=== PATIENT | female | born 2000 | race Caucasian/White ===

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

== ENCOUNTER → 2024-04-14 | Outpatient (CLI) | payer OTHER ==
[~2024-04-14] MED LIST changes: +CIPR250T3 PO; +LEXA1TAB PO; -PROPOFOL 200 MG/20 ML VIAL As Ordered; +SETL1TAB PO
[2024-04-14 17:03] LABS: HEMATOCRIT 37.5 % (36.0-47.0); HEMOGLOBIN 12.2 g/dl (12.0-15.5); MEAN CORPUSCULAR HGB CONC 32.5 g/dl (32.0-36.5); PLATELET COUNT, AUTOMATED 218 10^3/uL (150-450); RED BLOOD COUNT 4.36 10^6/uL (4.00-5.40); WHITE BLOOD COUNT 6.5 10^3/uL (4.0-10.0)
[2024-04-14 17:09] LABS: ERYTHROCYTE SEDIMENTATION RATE 36 mm/hr (0-20)
[2024-04-14 17:32] LABS: C REACTIVE PROTEIN QUANTITATIV < 0.40 MG/DL (<1.0)
[2024-04-14 17:34] LABS: ALBUMIN 3.7 G/DL (3.2-5.2); ALKALINE PHOSPHATASE 131 U/L (46-116); ALT/SGPT < 9 U/L (7.0-40); AST/SGOT 9 U/L (<34); BILIRUBIN,TOTAL 0.7 MG/DL (0.3-1.2); BLOOD UREA NITROGEN 8 MG/DL (9-23); CALCIUM LEVEL 9.1 MG/DL (8.5-10.1); CARBON DIOXIDE LEVEL 26 MMOL/L (20-31); CHLORIDE LEVEL 109 MMOL/L (98-107); CREATININE FOR GFR 0.76 MG/DL (0.55-1.30); GLOMERULAR FILTRATION RATE > 60.0 (>60); GLUCOSE, FASTING 85 MG/DL (60-100); POTASSIUM SERUM 3.8 MMOL/L (3.5-5.1); SODIUM LEVEL 140 MMOL/L (136-145); TOTAL PROTEIN 7.2 G/DL (5.7-8.2)
[2024-04-14 17:35] LABS: RHEUMATOID FACTOR QUANT 6.2 IU/ML (<14)
[2024-04-18 14:47] LABS: EBV AB TO NUCLEAR ANTIGEN < 18.00 U/mL (<18.00); EBV VIRAL CAPSID AG IGG < 18.00 U/mL (<18.00); EBV VIRAL CAPSID AG IGM < 36.00 U/mL (<36.00)
[2024-04-18 16:22] LABS: ANA SCREEN, IFA NEGATIVE (NEGATIVE)
== END ==
LOC: M WUC 13:13
PROVIDERS: ATTEND Physician Assistant
DX: R53.83 Other fatigue (principal); M79.10 Myalgia, unspecified site; M13.0 Polyarthritis, unspecified

== ENCOUNTER 2025-01-26 09:16 | Emergency (ER) | payer OTHER ==
[~2025-01-26] VITALS: Ht 152.4 cm; Wt 65.2 kg
[2025-01-26] MEDS ORDERED: MELO15TA28 (09:31)
[2025-01-26 10:40] LABS: BASO # 0.1 10^3/uL (0.0-0.2); BASO % 0.7 % (0.0-1.0); EOS # 0.1 10^3/uL (0.0-0.5); EOS % 1.8 % (0.0-3.0); LYMPH # 2.2 10^3/uL (1.5-5.0); LYMPH % 28.6 % (24.0-44.0); MONO # 0.5 10^3/uL (0.0-0.8); MONO % 6.8 % (2.0-8.0); NEUTROPHILS # 4.7 10^3/uL (1.5-8.5); NEUTROPHILS % 62.0 % (36.0-66.0); PLATELET COUNT, AUTOMATED 184 10^3/uL (150-450)
[2025-01-26 11:05] LABS: ALT/SGPT 13 U/L (7.0-40); AST/SGOT 20 U/L (<34); CALCIUM LEVEL 9.6 MG/DL (8.5-10.1); CARBON DIOXIDE LEVEL 26 MMOL/L (20-31); CHLORIDE LEVEL 104 MMOL/L (98-107); CREATININE FOR GFR 0.74 MG/DL (0.55-1.30); GLOMERULAR FILTRATION RATE > 90.0 (>60); POTASSIUM SERUM 3.6 MMOL/L (3.5-5.1); SODIUM LEVEL 141 MMOL/L (136-145)
[2025-01-26 11:17] LABS: HCG, SERUM QUALITATIVE NEGATIVE (NEGATIVE)
[2025-01-26 12:59] LABS: KETONE, URINE AUTO RFX NEGATIVE (NEGATIVE); LEUKOCYTE ESTERASE UR AUTO RFX NEGATIVE (NEGATIVE); NITRITE, URINE AUTO RFX NEGATIVE (NEGATIVE); RBC, URINE AUTO RFX 1 /HPF (0-3); SQUAM EPITHELIAL CELL UR AURFX 0 /HPF (0-6); WBC, URINE AUTO RFX 1 /HPF (0-3)
[2025-01-26 13:00] VITALS: BP 109/63
[2025-01-26] MEDS ORDERED: ISOVUE-370 76% 100 ML VIAL As Ordered ONE (13:12)
[2025-01-26 14:00] VITALS: O2SAT 99
[2025-01-26 14:32] VITALS: TEMP 97.9
== END 2025-01-26 14:38 | disposition home or self-care (01) ==
LOC: M ED 09:16
DX: N83.292 Other ovarian cyst, left side (principal); K58.9 Irritable bowel syndrome, unspecified; Z79.899 Other long term (current) drug therapy
CPT/HCPCS: 36415; 74177; 76705; 80048; 80076; 81001; 83690; 84703; 85025; 99284; Q9967